=== PATIENT | female | born 1945 | race Asian ===

== ENCOUNTER 2018-01-28 11:41 | Inpatient (IN) | payer MEDICAID, MEDICARE, OTHER ==
[~2018-01-28] VITALS: Ht 154.9 cm; Wt 44.5 kg
[2018-01-28] MEDS ORDERED: SODIUM CHLORIDE 0.9% 1,000 ML IVB ONE (12:23)
[2018-01-28 13:18] LABS: Lactic Acid w/Reflex 2.5 mmol/L (0.4-2.0)
[2018-01-28] MEDS ORDERED: SODIUM CHLORIDE 0.9% 1,000 ML IV ONE ×2 (15:00→15:45)
[2018-01-28 15:06] LABS: Basophils # (auto) 0 uL; Basophils % (auto) 0.2 % (0.0-2.0); Eosinophils # (auto) 0.1 uL; Eosinophils % (auto) 0.5 % (0.0-7.0); Hematocrit 28.4 % (36.0-46.0); Hemoglobin 9.4 g/dL (12.2-16.2); Lymphocytes # (auto) 1.6 uL; Lymphocytes % (auto) 7.6 % (10.0-50.0); Mean Corpuscular Hemoglobin 32.8 pg (28.0-32.0); Mean Corpuscular Volume 99.4 fL (80.0-100.0); Monocytes # (auto) 0.9 uL; Monocytes % (auto) 4.3 % (0.0-12.0); Neutrophils % (auto) 87.4 % (37.0-80.0); Platelet Count (auto) 201 10^3/uL (140-450); Red Blood Cells 2.86 10^6/uL (4.0-5.20); Red Cell Distribution Width 14.7 % (11.8-14.3); White Blood Cell 21.7 10^3/uL (4.4-10.8)
[2018-01-28] MEDS ORDERED: cefTRIAXone 1GM/10ml IVPUSH 10 ML IV ONE (15:15)
[2018-01-28 15:21] LABS: Albumin 2.3 g/dL (3.4-5.0); BUN/Creatinine Ratio 18.2; Bilirubin, Total 0.3 mg/dL (0.2-1.0); Calcium 7.8 mg/dL (8.5-10.1); Magnesium 2.1 mg/dL (1.6-2.6); Potassium 4.1 mmol/L (3.5-5.1); Total Protein 6.4 g/dL (6.4-8.2)
[2018-01-28] MEDS ORDERED: LORazepam 0.5 MG TAB PO PRN (15:45)
[2018-01-28] MEDS ORDERED: PROMETHAZINE HCL 25 MG/ML 1ML IV PRN (15:45)
[2018-01-28] MEDS ORDERED: LACTULOSE 20Gm/30ML SOLN PO PRN (15:45)
[2018-01-28] MEDS ORDERED: NITROGLYCERIN 0.4 MG SL TAB SL PRN (15:45)
[2018-01-28] MEDS ORDERED: ALBUTEROL SULF 2.5 MG/0.5ML(0.5%) NEB SOLN NEB PRN (15:45)
[2018-01-28] MEDS ORDERED: VANCOMYCIN PER PHARMACY 0 MG IV SCH (15:45)
[2018-01-28] MEDS ORDERED: MORPHINE SULFATE 4 MG/ML SYR/VIAL IV PRN ×2 (15:45)
[2018-01-28] MEDS: NOREPINEPHRINE 8 MG/250ML KIT 250 ML IV SCH (15:45)
[2018-01-28] MEDS: SODIUM CHLORIDE 0.9% 1,000 ML IV SCH ×2 (15:45→23:45)
[2018-01-28] MEDS ORDERED: ACETAMINOPHEN 500 MG TAB PO PRN (15:45)
[2018-01-28] MEDS ORDERED: PIPERACILLIN-TAZOB 3.375GM 50 ML IV ONE ×2 (15:45→17:00)
[2018-01-28] MEDS ORDERED: OSELTAMIVIR 30 MG CAP PO ONE (16:30)
[2018-01-28 16:34] LABS: INR 0.99 (0.9-1.15); Partial Thromboplastin Time 25.1 sec (22.64-33.71); Prothrombin Time 10.8 sec (9.37-12.3)
[2018-01-28 17:16] VITALS: BP 92/56
[2018-01-28] MEDS ORDERED: VANCOMYCIN 1GM/250ML 250 ML IV ONE ×2 (18:00→20:15)
[2018-01-28] MEDS: ALBUTEROL SULF 2.5 MG/0.5ML(0.5%) NEB SOLN NEB SCH (19:31)
[2018-01-28] MEDS: IPRATROPIUM BROM 0.5 MG/2.5ML INH SOL NEB SCH (19:31)
[2018-01-28 23:21] VITALS: BP 106/63
[2018-01-29] VITALS (16 sets, daily range): BP systolic 90–147; BP diastolic 52–75
[2018-01-29] MEDS: IPRATROPIUM BROM 0.5 MG/2.5ML INH SOL NEB SCH ×4 (00:17→19:05)
[2018-01-29] MEDS: ALBUTEROL SULF 2.5 MG/0.5ML(0.5%) NEB SOLN NEB SCH ×4 (00:17→19:05)
[2018-01-29 05:50] LABS: Basophils # (auto) 0 uL; Basophils % (auto) 0.3 % (0.0-2.0); Eosinophils # (auto) 0.1 uL; Eosinophils % (auto) 0.8 % (0.0-7.0); Hematocrit 27.9 % (36.0-46.0); Hemoglobin 9.4 g/dL (12.2-16.2); Lymphocytes # (auto) 0.6 uL; Lymphocytes % (auto) 4.8 % (10.0-50.0); Mean Corpuscular Hemoglobin 33.6 pg (28.0-32.0); Mean Corpuscular Hgb Conc. 33.8 g/dL (32.0-36.0); Mean Corpuscular Volume 99.4 fL (80.0-100.0); Monocytes # (auto) 0.5 uL; Neutrophils # (auto) 11.3 uL; Neutrophils % (auto) 90.1 % (37.0-80.0); Platelet Count (auto) 204 10^3/uL (140-450); Red Blood Cells 2.81 10^6/uL (4.0-5.20); Red Cell Distribution Width 14.4 % (11.8-14.3); White Blood Cell 12.5 10^3/uL (4.4-10.8)
[2018-01-29] MEDS: PIPERACILLIN-TAZOB 2.25GM 50 ML IV SCH ×2 (06:26)
[2018-01-29] MEDS: OSELTAMIVIR 30 MG CAP PO SCH ×2 (06:29→18:35)
[2018-01-29 06:46] LABS: Albumin 2.2 g/dL (3.4-5.0); BUN/Creatinine Ratio 21.1; Bilirubin, Total 0.3 mg/dL (0.2-1.0); Calcium 7.8 mg/dL (8.5-10.1); Potassium 3.1 mmol/L (3.5-5.1); Total Protein 6.1 g/dL (6.4-8.2)
[2018-01-29] MEDS: SODIUM CHLORIDE 0.9% 1,000 ML IV SCH ×2 (09:11→11:01)
[2018-01-29] MEDS ORDERED: ENOXAPARIN SOD 30 MG/0.3 ML SYRINGE SC SCH (10:00)
[2018-01-29] MEDS: PANTOPRAZOLE 40 MG TAB PO SCH (10:03)
[2018-01-29] MEDS: AZITHROMYCIN 500MG/ 250ML 250 ML IV SCH (10:03)
[2018-01-29 10:05] LABS: Urine WBC None Seen /hpf (0 - 5)
[2018-01-29] MEDS ORDERED: POTASSIUM CHL 20 Meq TABLET PO ONE (10:30)
[2018-01-29 10:39] LABS: Urine Bacteria NONE SEEN /hpf (None Seen); Urine Blood TRACE /uL (Negative); Urine Specific Gravity 1.019 (1.001-1.035)
[2018-01-29] MEDS ORDERED: IOHEXOL 300 MG/ML 100ML BOTTLE IJ ONE (11:33)
[2018-01-29] MEDS ORDERED: MIDAZOLAM HCL 1MG/1ML-2 ML VIAL ONE (11:50)
[2018-01-29] MEDS ORDERED: fentaNYL CITRATE 100 MCG/2 ML VL ONE (11:50)
[2018-01-29] MEDS: NOREPINEPHRINE 8 MG/250ML KIT 250 ML IV SCH (15:45)
[2018-01-29] MEDS: VANCOMYCIN 1GM/250ML 250 ML IV SCH (21:48)
[2018-01-29] MEDS: TEMAZEPAM 15 MG CAP PO PRN (22:10)
[2018-01-30] VITALS: BP 125/65
[2018-01-30] MEDS: SODIUM CHLORIDE 0.9% 1,000 ML IV SCH ×2 (00:15→14:57)
[2018-01-30] MEDS: IPRATROPIUM BROM 0.5 MG/2.5ML INH SOL NEB SCH ×4 (01:10→19:27)
[2018-01-30] MEDS: ALBUTEROL SULF 2.5 MG/0.5ML(0.5%) NEB SOLN NEB SCH ×4 (01:10→19:27)
[2018-01-30 03:40] VITALS: BP 114/66
[2018-01-30] MEDS: OSELTAMIVIR 30 MG CAP PO SCH ×2 (05:35→17:52)
[2018-01-30 06:20] LABS: Basophils # (auto) 0 uL; Basophils % (auto) 0.2 % (0.0-2.0); Eosinophils # (auto) 0.1 uL; Eosinophils % (auto) 1.5 % (0.0-7.0); Hematocrit 27.1 % (36.0-46.0); Hemoglobin 9.1 g/dL (12.2-16.2); Lymphocytes # (auto) 0.6 uL; Lymphocytes % (auto) 7.2 % (10.0-50.0); Mean Corpuscular Hemoglobin 33.5 pg (28.0-32.0); Mean Corpuscular Hgb Conc. 33.8 g/dL (32.0-36.0); Mean Corpuscular Volume 99.1 fL (80.0-100.0); Monocytes # (auto) 0.5 uL; Monocytes % (auto) 5.1 % (0.0-12.0); Neutrophils # (auto) 7.6 uL; Nucleated Red Blood Cells % 0.1 %; Platelet Count (auto) 186 10^3/uL (140-450); Red Blood Cells 2.73 10^6/uL (4.0-5.20); Red Cell Distribution Width 14.3 % (11.8-14.3); White Blood Cell 8.8 10^3/uL (4.4-10.8)
[2018-01-30 06:38] LABS: BUN/Creatinine Ratio 12.8; Calcium 8.2 mg/dL (8.5-10.1); Potassium 3.6 mmol/L (3.5-5.1)
[2018-01-30 08:00] VITALS: BP 135/86
[2018-01-30] MEDS ORDERED: MEGE40TA15 PO (10:31)
[2018-01-30] MEDS ORDERED: PYRI200T8 PO (10:31)
[2018-01-30] MEDS ORDERED: ISON100T32 PO (10:31)
[2018-01-30] MEDS ORDERED: LUBI8CAP4 PO (10:31)
[2018-01-30] MEDS ORDERED: GUAISYP5 PO (10:31)
[2018-01-30] MEDS ORDERED: LORA-622 PO (10:37)
[2018-01-30] MEDS ORDERED: OMEP20CA74 PO (10:37)
[2018-01-30] MEDS ORDERED: VALS320T15 PO (10:37)
[2018-01-30] MEDS ORDERED: SIMV-8 PO (10:37)
[2018-01-30] MEDS ORDERED: MIRT30TA PO (10:37)
[2018-01-30] MEDS ORDERED: CLOP75TA41 PO (10:37)
[2018-01-30] MEDS ORDERED: TRAZ100T2 PO (10:37)
[2018-01-30] MEDS ORDERED: METH5TAB77 PO (10:37)
[2018-01-30] MEDS ORDERED: ERGO1CAP6 PO (10:37)
[2018-01-30] MEDS: AZITHROMYCIN 500MG/ 250ML 250 ML IV SCH (11:55)
[2018-01-30] MEDS: cefTRIAXone 1GM/10ml IVPUSH 10 ML IV SCH (11:55)
[2018-01-30] MEDS: PANTOPRAZOLE 40 MG TAB PO SCH (11:55)
[2018-01-30 12:00] VITALS: BP 117/69
[2018-01-30] MEDS ORDERED: FLORASTOR (S. BOULARDII) 250 MG CAP PO SCH (13:00)
[2018-01-30] MEDS: FLORASTOR (S. BOULARDII) 250 MG CAP PO SCH (14:57)
[2018-01-30] MEDS: metroNIDAZOLE 500 MG TAB PO SCH ×2 (14:57→21:31)
[2018-01-30 16:00] VITALS: BP 126/53
[2018-01-30 20:00] VITALS: BP 131/65
[2018-01-30] MEDS: VANCOMYCIN 1GM/250ML 250 ML IV SCH (21:31)
[2018-01-30] MEDS ORDERED: guaiFENesin 200 MG/10 ML UD GT PRN (23:15)
[2018-01-31] MEDS: SODIUM CHLORIDE 0.9% 1,000 ML IV SCH (02:30)
[2018-01-31 05:00] VITALS: BP 124/76
[2018-01-31] MEDS: metroNIDAZOLE 500 MG TAB PO SCH ×2 (05:55→14:14)
[2018-01-31] MEDS: ALBUTEROL SULF 2.5 MG/0.5ML(0.5%) NEB SOLN NEB SCH ×4 (06:01→18:33)
[2018-01-31] MEDS: IPRATROPIUM BROM 0.5 MG/2.5ML INH SOL NEB SCH ×4 (06:01→18:33)
[2018-01-31 07:03] LABS: Basophils # (auto) 0 uL; Basophils % (auto) 0.6 % (0.0-2.0); Eosinophils # (auto) 0.2 uL; Eosinophils % (auto) 3.2 % (0.0-7.0); Hematocrit 32.1 % (36.0-46.0); Hemoglobin 10.9 g/dL (12.2-16.2); Lymphocytes # (auto) 0.7 uL; Lymphocytes % (auto) 11.3 % (10.0-50.0); Mean Corpuscular Hemoglobin 33.4 pg (28.0-32.0); Mean Corpuscular Hgb Conc. 33.9 g/dL (32.0-36.0); Mean Corpuscular Volume 98.6 fL (80.0-100.0); Monocytes # (auto) 0.5 uL; Monocytes % (auto) 8.2 % (0.0-12.0); Neutrophils # (auto) 4.7 uL; Neutrophils % (auto) 76.7 % (37.0-80.0); Nucleated Red Blood Cells % 0.1 %; Platelet Count (auto) 209 10^3/uL (140-450); Red Blood Cells 3.26 10^6/uL (4.0-5.20); Red Cell Distribution Width 14.5 % (11.8-14.3); White Blood Cell 6.1 10^3/uL (4.4-10.8)
[2018-01-31 07:19] LABS: BUN/Creatinine Ratio 6.8; Calcium 8.2 mg/dL (8.5-10.1)
[2018-01-31] MEDS: cefTRIAXone 1GM/10ml IVPUSH 10 ML IV SCH (08:41)
[2018-01-31 09:00] VITALS: BP 113/62
[2018-01-31] MEDS: OSELTAMIVIR 30 MG CAP PO SCH ×2 (10:38→18:05)
[2018-01-31] MEDS: FLORASTOR (S. BOULARDII) 250 MG CAP PO SCH (10:38)
[2018-01-31] MEDS: PANTOPRAZOLE 40 MG TAB PO SCH (10:39)
[2018-01-31] MEDS: AZITHROMYCIN 250 MG TAB PO SCH (10:39)
[2018-01-31] MEDS ORDERED: SOD CHL 0.9%/ KCL 20MEQ 1,000 ML IV SCH (12:00)
[2018-01-31] MEDS ORDERED: POTASSIUM CHL 20 Meq TABLET PO ONE (12:00)
[2018-01-31] MEDS ORDERED: BOOST PLUS 8 ounce PO ONE (12:30)
[2018-01-31 13:00] VITALS: BP 118/80
[2018-01-31 16:41] VITALS: BP 128/65
[2018-01-31] MEDS: BOOST PLUS 8 ounce PO SCH (18:05)
[2018-01-31] MEDS: PRO-STAT 64 30ML PO SCH (18:05)
[2018-01-31] MEDS: HYDROcodone-ACET 5/325MG TAB PO PRN (18:54)
[2018-01-31] MEDS ORDERED: LIDOCAINE 1% HCL (LOCAL ANESTH.) INJ 20ML MDV ID ONE (20:00)
[2018-01-31 22:00] VITALS: BP 110/68
[2018-01-31] MEDS: SODIUM CHLOR 0.9% PF (SALINE LOCK) 10ML VIAL IV SCH (22:06)
[2018-01-31] MEDS: TEMAZEPAM 15 MG CAP PO PRN (22:21)
[2018-01-31] MEDS: VANCOMYCIN 1GM/250ML 250 ML IV SCH (22:22)
[2018-02-01] MEDS: IPRATROPIUM BROM 0.5 MG/2.5ML INH SOL NEB SCH ×4 (00:20→18:00)
[2018-02-01] MEDS: ALBUTEROL SULF 2.5 MG/0.5ML(0.5%) NEB SOLN NEB SCH ×4 (00:20→18:00)
[2018-02-01 05:00] VITALS: BP 117/73
[2018-02-01 05:26] LABS: BUN/Creatinine Ratio 8.7; Calcium 8.7 mg/dL (8.5-10.1); Potassium 3.5 mmol/L (3.5-5.1)
[2018-02-01] MEDS: OSELTAMIVIR 30 MG CAP PO SCH ×2 (06:13→18:06)
[2018-02-01] MEDS: PRO-STAT 64 30ML PO SCH ×2 (08:17→18:06)
[2018-02-01] MEDS: BOOST PLUS 8 ounce PO SCH ×2 (08:17→17:06)
[2018-02-01] MEDS: HYDROcodone-ACET 5/325MG TAB PO PRN ×2 (08:18→21:37)
[2018-02-01 08:29] VITALS: BP 102/67
[2018-02-01] MEDS: cefTRIAXone 1GM/10ml IVPUSH 10 ML IV SCH (09:00)
[2018-02-01] MEDS: SODIUM CHLOR 0.9% PF (SALINE LOCK) 10ML VIAL IV SCH ×2 (10:23→21:36)
[2018-02-01] MEDS: PANTOPRAZOLE 40 MG TAB PO SCH (10:23)
[2018-02-01] MEDS: FLORASTOR (S. BOULARDII) 250 MG CAP PO SCH (10:23)
[2018-02-01] MEDS: AZITHROMYCIN 250 MG TAB PO SCH (10:24)
[2018-02-01] MEDS: VANCOMYCIN 750 MG in D5W 5% 250 ML IV SCH ×2 (13:16→21:27)
[2018-02-01 13:34] VITALS: BP 124/68
[2018-02-01 16:21] VITALS: BP 118/61
[2018-02-01] MEDS: TEMAZEPAM 15 MG CAP PO PRN (21:37)
[2018-02-01 22:00] VITALS: BP 145/87
[2018-02-02 05:00] VITALS: BP 123/70
[2018-02-02] MEDS: VANCOMYCIN 750 MG in D5W 5% 250 ML IV SCH (05:13)
[2018-02-02] MEDS: IPRATROPIUM BROM 0.5 MG/2.5ML INH SOL NEB SCH ×4 (05:51→18:42)
[2018-02-02] MEDS: ALBUTEROL SULF 2.5 MG/0.5ML(0.5%) NEB SOLN NEB SCH ×4 (05:51→18:42)
[2018-02-02] MEDS: HYDROcodone-ACET 5/325MG TAB PO PRN ×2 (06:03→18:12)
[2018-02-02] MEDS: OSELTAMIVIR 30 MG CAP PO SCH ×2 (07:00→18:00)
[2018-02-02 09:05] VITALS: BP 96/60
[2018-02-02] MEDS: cefTRIAXone 1GM/10ml IVPUSH 10 ML IV SCH (09:24)
[2018-02-02] MEDS: PANTOPRAZOLE 40 MG TAB PO SCH (09:25)
[2018-02-02] MEDS: FLORASTOR (S. BOULARDII) 250 MG CAP PO SCH (09:25)
[2018-02-02] MEDS: SODIUM CHLOR 0.9% PF (SALINE LOCK) 10ML VIAL IV SCH ×2 (09:25→21:42)
[2018-02-02] MEDS: AZITHROMYCIN 250 MG TAB PO SCH (09:26)
[2018-02-02] MEDS: PRO-STAT 64 30ML PO SCH ×2 (09:34→18:15)
[2018-02-02] MEDS: BOOST PLUS 8 ounce PO SCH ×2 (09:34→18:14)
[2018-02-02] MEDS ORDERED: FLUCONAZOLE 100 MG TAB PO ONE (11:00)
[2018-02-02 11:50] LABS: Basophils # (auto) 0.1 uL; Basophils % (auto) 1.1 % (0.0-2.0); Eosinophils # (auto) 0.4 uL; Eosinophils % (auto) 6.4 % (0.0-7.0); Hematocrit 29.8 % (36.0-46.0); Lymphocytes # (auto) 1.2 uL; Lymphocytes % (auto) 19.8 % (10.0-50.0); Mean Corpuscular Hemoglobin 32.9 pg (28.0-32.0); Mean Corpuscular Hgb Conc. 33.6 g/dL (32.0-36.0); Mean Corpuscular Volume 98.1 fL (80.0-100.0); Monocytes # (auto) 0.6 uL; Monocytes % (auto) 10.2 % (0.0-12.0); Neutrophils # (auto) 3.8 uL; Neutrophils % (auto) 62.5 % (37.0-80.0); Platelet Count (auto) 239 10^3/uL (140-450); Red Blood Cells 3.04 10^6/uL (4.0-5.20); Red Cell Distribution Width 14.4 % (11.8-14.3)
[2018-02-02 12:06] LABS: BUN/Creatinine Ratio 7.1; Calcium 8.8 mg/dL (8.5-10.1); Potassium 3.6 mmol/L (3.5-5.1)
[2018-02-02 13:00] VITALS: BP 128/66
[2018-02-02 17:00] VITALS: BP 134/56
[2018-02-02] MEDS: TEMAZEPAM 15 MG CAP PO PRN (21:42)
[2018-02-02 22:23] VITALS: BP 125/68
[2018-02-03] MEDS: ALBUTEROL SULF 2.5 MG/0.5ML(0.5%) NEB SOLN NEB SCH ×3 (00:39→11:59)
[2018-02-03] MEDS: IPRATROPIUM BROM 0.5 MG/2.5ML INH SOL NEB SCH ×3 (00:39→11:59)
[2018-02-03 04:29] VITALS: BP 115/66
[2018-02-03 05:49] LABS: Basophils # (auto) 0.1 uL; Basophils % (auto) 1.9 % (0.0-2.0); Eosinophils # (auto) 0.4 uL; Eosinophils % (auto) 6.5 % (0.0-7.0); Hematocrit 26.1 % (36.0-46.0); Lymphocytes # (auto) 1.2 uL; Lymphocytes % (auto) 20.2 % (10.0-50.0); Mean Corpuscular Hemoglobin 33.5 pg (28.0-32.0); Mean Corpuscular Hgb Conc. 34.6 g/dL (32.0-36.0); Monocytes # (auto) 0.7 uL; Monocytes % (auto) 11.3 % (0.0-12.0); Neutrophils # (auto) 3.5 uL; Neutrophils % (auto) 60.1 % (37.0-80.0); Platelet Count (auto) 244 10^3/uL (140-450); Red Blood Cells 2.69 10^6/uL (4.0-5.20); Red Cell Distribution Width 14.3 % (11.8-14.3); White Blood Cell 5.9 10^3/uL (4.4-10.8)
[2018-02-03 06:46] LABS: BUN/Creatinine Ratio 11.9; Calcium 8.7 mg/dL (8.5-10.1); Potassium 3.7 mmol/L (3.5-5.1)
[2018-02-03] MEDS: cefTRIAXone 1GM/10ml IVPUSH 10 ML IV SCH (08:53)
[2018-02-03] MEDS: BOOST PLUS 8 ounce PO SCH (08:54)
[2018-02-03] MEDS: PRO-STAT 64 30ML PO SCH (08:54)
[2018-02-03 09:00] VITALS: BP 120/67
[2018-02-03] MEDS ORDERED: FLUCONAZOLE 100 MG TAB PO SCH (10:00)
[2018-02-03] MEDS: FLORASTOR (S. BOULARDII) 250 MG CAP PO SCH (11:02)
[2018-02-03] MEDS: PANTOPRAZOLE 40 MG TAB PO SCH (11:02)
[2018-02-03] MEDS: AZITHROMYCIN 250 MG TAB PO SCH (11:02)
[2018-02-03] MEDS: SODIUM CHLOR 0.9% PF (SALINE LOCK) 10ML VIAL IV SCH (11:04)
== END 2018-02-03 13:15 | disposition home or self-care (01) | DRG 871 ==
LOC: EDBD 11:41 → ER 11:41 → OVERFLOW 11:42 → DOU IN ICU 21:59 → TELE-CENTR 01-30 22:40
PROVIDERS: ADMIT Internal Medicine; ATTEND Internal Medicine
PROC: 0BBC3ZX Excision of Right Upper Lung Lobe, Percutaneous Approach, Diagnostic (ICD-10-PCS; 2018-01-29)
PROC: 02HV33Z Insertion of Infusion Device into Superior Vena Cava, Percutaneous Approach (ICD-10-PCS; principal; 2018-01-31)
DX: A41.9 Sepsis, unspecified organism (principal); G93.41 Metabolic encephalopathy; N17.0 Acute kidney failure with tubular necrosis; R65.21 Severe sepsis with septic shock; J11.08 Influenza due to unidentified influenza virus with specified pneumonia; J18.9 Pneumonia, unspecified organism; E44.0 Moderate protein-calorie malnutrition; D64.9 Anemia, unspecified; K83.8 Other specified diseases of biliary tract; J44.0 Chronic obstructive pulmonary disease with (acute) lower respiratory infection; G47.00 Insomnia, unspecified; E78.5 Hyperlipidemia, unspecified; I10 Essential (primary) hypertension; K21.9 Gastro-esophageal reflux disease without esophagitis; Z86.11 Personal history of tuberculosis; Z87.01 Personal history of pneumonia (recurrent); Z87.891 Personal history of nicotine dependence; Z79.899 Other long term (current) drug therapy
CPT/HCPCS: 10022; 10030; 32405; 36415; 36569; 70450; 71045; 71250; 74177; 77012; 80048; 80053; 80061; 80202; 81001; 82962; 83605; 83735; 84484; 85025; 85610; 85730; 87040; 87070; 87081; 87086; 87205; 87493; 87804; 93005; 94640; 94761; 96361; 96374; 97116; 97530; G9035; J2250; J2543; J7060

== ENCOUNTER 2018-05-06 11:36 | Inpatient (IN) | payer MEDICARE, MEDICAID ==
[~2018-05-06] VITALS: Ht 152.4 cm; Wt 96.1 kg
[~2018-05-06 11:36] MED LIST: CLOP75TA41 PO; ERGO1CAP6 PO; GUAISYP5 PO; ISON100T32 PO; LORA-622 PO; LUBI8CAP4 PO; MEGE40TA15 PO; METH5TAB77 PO; MIRT30TA PO; OMEP20CA74 PO; PYRI200T8 PO; SIMV-8 PO; TRAZ100T2 PO; VALS320T15 PO
[2018-05-06 12:34] LABS: Basophils # (auto) 0.2 uL; Basophils % (auto) 1.2 % (0.0-2.0); Eosinophils # (auto) 0.4 uL; Eosinophils % (auto) 3.6 % (0.0-7.0); Hematocrit 34.3 % (36.0-46.0); Hemoglobin 11.4 g/dL (12.2-16.2); Lymphocytes # (auto) 1.2 uL; Lymphocytes % (auto) 9.4 % (10.0-50.0); Mean Corpuscular Hemoglobin 32.6 pg (28.0-32.0); Mean Corpuscular Hgb Conc. 33.2 g/dL (32.0-36.0); Mean Corpuscular Volume 98.4 fL (80.0-100.0); Monocytes # (auto) 0.7 uL; Monocytes % (auto) 5.2 % (0.0-12.0); Neutrophils # (auto) 10.1 uL; Neutrophils % (auto) 80.6 % (37.0-80.0); Platelet Count (auto) 376 10^3/uL (140-450); Red Blood Cells 3.49 10^6/uL (4.0-5.20); Red Cell Distribution Width 14.6 % (11.8-14.3); White Blood Cell 12.5 10^3/uL (4.4-10.8)
[2018-05-06 12:43] LABS: INR 0.99 (0.9-1.15); Partial Thromboplastin Time 31.7 sec (23.78-33.04); Prothrombin Time 10.6 sec (9.27-12.13)
[2018-05-06 12:54] LABS: Anion Gap 8 (5-15); BUN/Creatinine Ratio 13.5; Blood Urea Nitrogen 10 mg/dL (7-18); Calcium 8.3 mg/dL (8.5-10.1); Carbon Dioxide 22 mmol/L (21-32); Chloride 106 mmol/L (98-107); GFR African American 99 mL/min; GFR Non-African American 82 mL/min; Glucose 130 mg/dL (74-106); Potassium 3.7 mmol/L (3.5-5.1); Sodium 136 mmol/L (136-145)
[2018-05-06 12:59] LABS: Alanine Aminotransferase 16 U/L (13-56); Alkaline Phosphatase 88 U/L (45-117); Aspartate Aminotransferase 17 U/L (15-37); Bilirubin, Total 0.5 mg/dL (0.2-1.0); Total Protein 7.4 g/dL (6.4-8.2)
[2018-05-06] MEDS ORDERED: methylPREDNISolone SOD SUCC 125 MG/2 ML VL IV ONE (14:30)
[2018-05-06] MEDS ORDERED: LEVO5TAB2 PO (14:30)
[2018-05-06] MEDS ORDERED: IPRATROPIUM BROM 0.5 MG/2.5ML INH SOL HHN ONE (14:30)
[2018-05-06] MEDS ORDERED: TIOT1AER IN (14:30)
[2018-05-06] MEDS ORDERED: ALBU0.084 NEB (14:30)
[2018-05-06] MEDS ORDERED: PANC1CAP30 PO (14:30)
[2018-05-06] MEDS ORDERED: cefTRIAXone 1GM/10ml IVPUSH 10 ML IV ONE (14:30)
[2018-05-06] MEDS ORDERED: ALBUTEROL SULF 2.5 MG/0.5ML(0.5%) NEB SOLN HHN ONE (14:30)
[2018-05-06 14:46] LABS: Urine Bacteria NONE SEEN /hpf (None Seen); Urine Blood Negative /uL (Negative); Urine Mucus FEW (None Seen); Urine Specific Gravity 1.031 (1.001-1.035); Urine WBC 5 /hpf (0 - 5)
[2018-05-06] MEDS ORDERED: PROMETHAZINE HCL 25 MG/ML 1ML IV PRN (15:30)
[2018-05-06] MEDS ORDERED: MORPHINE SULF(PF) 0.5MG/ML 10ML VIAL IV PRN (15:30)
[2018-05-06] MEDS ORDERED: MORPHINE SULFATE 8mg/ml INJ SDV IV PRN (15:30)
[2018-05-06] MEDS ORDERED: LACTULOSE 20Gm/30ML SOLN PO PRN (15:30)
[2018-05-06] MEDS ORDERED: LORazepam 0.5 MG TAB PO PRN (15:30)
[2018-05-06] MEDS ORDERED: NITROGLYCERIN 0.4 MG SL TAB SL PRN (15:30)
[2018-05-06] MEDS ORDERED: TEMAZEPAM 15 MG CAP PO PRN (15:30)
[2018-05-06] MEDS ORDERED: ALBUTEROL SULF 2.5 MG/0.5ML(0.5%) NEB SOLN NEB PRN (15:30)
[2018-05-06] MEDS: SODIUM CHLORIDE 0.9% 1,000 ML IV SCH (16:01)
[2018-05-06] MEDS: CLINDAMYCIN 600MG IV 50 ML IV SCH ×2 (16:12→21:56)
[2018-05-06] MEDS: IPRATROPIUM BROM 0.5 MG/2.5ML INH SOL NEB SCH ×2 (16:15→18:21)
[2018-05-06] MEDS: ALBUTEROL SULF 2.5 MG/0.5ML(0.5%) NEB SOLN NEB SCH ×2 (16:15→18:21)
[2018-05-06] MEDS: LEVOFLOXACIN 500MG 100 ML IV SCH (17:03)
[2018-05-06 20:00] VITALS: BP 117/59
[2018-05-06 22:00] VITALS: BP 117/59
[2018-05-06 22:36] VITALS: BP 125/68
[2018-05-06] MEDS ORDERED: PROM1SYP4 PO (23:59)
[2018-05-06] MEDS ORDERED: TRAM50TA2 PO (23:59)
[2018-05-06] MEDS ORDERED: PYRI50TA71 PO (23:59)
[2018-05-06] MEDS ORDERED: OMEP20TA PO (23:59)
[2018-05-06] MEDS ORDERED: DOXY100C2 PO (23:59)
[2018-05-07] MEDS: IPRATROPIUM BROM 0.5 MG/2.5ML INH SOL NEB SCH ×4 (00:30→19:42)
[2018-05-07] MEDS: ALBUTEROL SULF 2.5 MG/0.5ML(0.5%) NEB SOLN NEB SCH ×4 (00:30→19:42)
[2018-05-07 04:14] VITALS: BP 128/67
[2018-05-07] MEDS: SODIUM CHLORIDE 0.9% 1,000 ML IV SCH (06:10)
[2018-05-07] MEDS: CLINDAMYCIN 600MG IV 50 ML IV SCH ×3 (06:11→20:06)
[2018-05-07 06:16] LABS: Basophils # (auto) 0 uL; Basophils % (auto) 0.1 % (0.0-2.0); Eosinophils # (auto) 0 uL; Hematocrit 31.4 % (36.0-46.0); Hemoglobin 10.6 g/dL (12.2-16.2); Lymphocytes # (auto) 0.5 uL; Lymphocytes % (auto) 8.1 % (10.0-50.0); Mean Corpuscular Hemoglobin 32.9 pg (28.0-32.0); Mean Corpuscular Hgb Conc. 33.9 g/dL (32.0-36.0); Monocytes # (auto) 0 uL; Monocytes % (auto) 0.6 % (0.0-12.0); Neutrophils # (auto) 5.7 uL; Neutrophils % (auto) 91.2 % (37.0-80.0); Platelet Count (auto) 354 10^3/uL (140-450); Red Blood Cells 3.24 10^6/uL (4.0-5.20); Red Cell Distribution Width 14.5 % (11.8-14.3); White Blood Cell 6.2 10^3/uL (4.4-10.8)
[2018-05-07 06:40] LABS: Albumin 2.9 g/dL (3.4-5.0); BUN/Creatinine Ratio 18.9; Bilirubin, Total 0.2 mg/dL (0.2-1.0); Calcium 8.8 mg/dL (8.5-10.1); Potassium 3.8 mmol/L (3.5-5.1); Total Protein 7.4 g/dL (6.4-8.2)
[2018-05-07 09:00] VITALS: BP 117/62
[2018-05-07] MEDS ORDERED: ENOXAPARIN SOD 30 MG/0.3 ML SYRINGE SC SCH (10:00)
[2018-05-07] MEDS: LEVOFLOXACIN 500MG 100 ML IV SCH (10:48)
[2018-05-07] MEDS ORDERED: methylPREDNISolone SOD SUCC 40 MG/ML VL IV ONE (11:15)
[2018-05-07] MEDS ORDERED: METHIMAZOLE 5 MG TAB PO ONE (11:15)
[2018-05-07 13:00] VITALS: BP 121/68
[2018-05-07 16:32] VITALS: BP 112/79
[2018-05-07] MEDS: ACETAMINOPHEN 500 MG TAB PO PRN (20:06)
[2018-05-07 21:55] VITALS: BP 123/66
[2018-05-08] MEDS: ALBUTEROL SULF 2.5 MG/0.5ML(0.5%) NEB SOLN NEB SCH ×4 (02:24→18:08)
[2018-05-08] MEDS: IPRATROPIUM BROM 0.5 MG/2.5ML INH SOL NEB SCH ×4 (02:24→18:08)
[2018-05-08 05:00] VITALS: BP 139/83
[2018-05-08] MEDS: CLINDAMYCIN 600MG IV 50 ML IV SCH (05:01)
[2018-05-08 06:20] LABS: BUN/Creatinine Ratio 27.5; Calcium 9.3 mg/dL (8.5-10.1); Potassium 3.9 mmol/L (3.5-5.1)
[2018-05-08 08:00] VITALS: BP 143/75
[2018-05-08 09:12] VITALS: BP 143/75
[2018-05-08] MEDS: METHIMAZOLE 5 MG TAB PO SCH (09:50)
[2018-05-08] MEDS: LEVOFLOXACIN 500MG 100 ML IV SCH (09:50)
[2018-05-08] MEDS ORDERED: methylPREDNISolone SOD SUCC 40 MG/ML VL IV SCH (10:00)
[2018-05-08] MEDS ORDERED: ENOXAPARIN SOD 30 MG/0.3 ML SYRINGE SC SCH (10:00)
[2018-05-08] MEDS ORDERED: FLUCONAZOLE 200MG/100ML 100 ML IV ONE (11:15)
[2018-05-08] MEDS ORDERED: MORPHINE SULF INJ 2 MG/ML SYRINGE 1ML IV PRN (11:30)
[2018-05-08] MEDS: PIPERACILLIN-TAZOB 3.375GM 100 ML IV SCH ×3 (12:22→23:56)
[2018-05-08 13:06] VITALS: BP 137/74
[2018-05-08] MEDS: ACETAMINOPHEN 500 MG TAB PO PRN (17:01)
[2018-05-08] MEDS ORDERED: FLUCONAZOLE 100 MG TAB PO ONE (17:15)
[2018-05-08 17:26] VITALS: BP 137/53
[2018-05-08 21:40] VITALS: BP 132/66
[2018-05-08] MEDS: methylPREDNISolone SOD SUCC 40 MG/ML VL IV SCH (21:54)
[2018-05-09 05:06] VITALS: BP 151/81
[2018-05-09] MEDS: PIPERACILLIN-TAZOB 3.375GM 100 ML IV SCH (05:22)
[2018-05-09] MEDS: IPRATROPIUM BROM 0.5 MG/2.5ML INH SOL NEB SCH ×4 (05:44→12:19)
[2018-05-09] MEDS: ALBUTEROL SULF 2.5 MG/0.5ML(0.5%) NEB SOLN NEB SCH ×4 (05:44→12:19)
[2018-05-09 09:30] VITALS: BP 123/71
[2018-05-09] MEDS ORDERED: FLUCONAZOLE 100 MG TAB PO SCH (10:00)
[2018-05-09] MEDS ORDERED: FLUCONAZOLE 200MG/100ML 100 ML IV SCH (10:00)
[2018-05-09] MEDS: methylPREDNISolone SOD SUCC 40 MG/ML VL IV SCH (10:08)
[2018-05-09] MEDS: METHIMAZOLE 5 MG TAB PO SCH (10:09)
[2018-05-09 11:42] VITALS: BP 123/71
== END 2018-05-09 12:15 | disposition home or self-care (01) | DRG 137 ==
LOC: ER 11:37 → TELE 11:38 → TELE-EAST 20:34 → EAST 05-07 22:49
PROVIDERS: ADMIT Internal Medicine; ATTEND Internal Medicine
DX: J15.1 Pneumonia due to Pseudomonas (principal); E44.0 Moderate protein-calorie malnutrition; I48.0 Paroxysmal atrial fibrillation; Z68.41 Body mass index [BMI] 40.0-44.9, adult; J44.0 Chronic obstructive pulmonary disease with (acute) lower respiratory infection; I10 Essential (primary) hypertension; E05.90 Thyrotoxicosis, unspecified without thyrotoxic crisis or storm; J44.1 Chronic obstructive pulmonary disease with (acute) exacerbation; D50.8 Other iron deficiency anemias; D50.9 Iron deficiency anemia, unspecified; E78.5 Hyperlipidemia, unspecified; K21.9 Gastro-esophageal reflux disease without esophagitis; Z82.49 Family history of ischemic heart disease and other diseases of the circulatory system; Z86.11 Personal history of tuberculosis; Z87.891 Personal history of nicotine dependence; K59.00 Constipation, unspecified
CPT/HCPCS: 36415; 71046; 80048; 80053; 81001; 83605; 83735; 84484; 85025; 85610; 85730; 87040; 87070; 87077; 87186; 87205; 93005; 94640; 94761; 96361; 96374; 96375; J1956; J2543; J3490

== ENCOUNTER 2018-11-02 09:30 | Emergency (ER) | payer MEDICARE, OTHER ==
[~2018-11-02] VITALS: Ht 152.4 cm; Wt 42.6 kg
[~2018-11-02 09:30] MED LIST changes: +ALBU0.084 NEB; -ERGO1CAP6 PO; +FLUT1AER3 IN; -GUAISYP5 PO; -ISON100T32 PO; +LEVO5TAB2 PO; -LORA-622 PO; +METH5T PO; -METH5TAB77 PO; -MIRT30TA PO; -OMEP20CA74 PO; +OMEP20TA PO; +PANC1CAP30 PO; +PROM1SYP4 PO; -PYRI200T8 PO; +PYRI50TA71 PO; +TIOT1AER IN; +TRAM50TA2 PO; -VALS320T15 PO; +ZOLP10TA PO
[2018-11-02 10:07] LABS: Basophils # (auto) 0.1 uL; Eosinophils # (auto) 0.2 uL; Hemoglobin 12.4 g/dL (12.2-16.2); Monocytes # (auto) 0.5 uL
[2018-11-02 10:10] LABS: Basophils % (auto) 1.3 % (0.0-2.0); Eosinophils % (auto) 2.2 % (0.0-7.0); Hematocrit 37.4 % (36.0-46.0); Lymphocytes # (auto) 1.3 uL; Lymphocytes % (auto) 14.6 % (10.0-50.0); Mean Corpuscular Hemoglobin 33.4 pg (28.0-32.0); Mean Corpuscular Hgb Conc. 33.3 g/dL (32.0-36.0); Mean Corpuscular Volume 100.4 fL (80.0-100.0); Monocytes % (auto) 6.1 % (0.0-12.0); Neutrophils # (auto) 6.7 uL; Neutrophils % (auto) 75.8 % (37.0-80.0); Platelet Count (auto) 376 10^3/uL (140-450); Red Blood Cells 3.73 10^6/uL (4.0-5.20); Red Cell Distribution Width 13.9 % (11.8-14.3); White Blood Cell 8.9 10^3/uL (4.4-10.8)
[2018-11-02 10:28] LABS: Albumin 3.5 g/dL (3.4-5.0); Anion Gap 11 (5-15); Blood Urea Nitrogen 10 mg/dL (7-18); Calcium 9.1 mg/dL (8.5-10.1); Carbon Dioxide 22 mmol/L (21-32); Chloride 100 mmol/L (98-107); Glucose 119 mg/dL (74-106); Potassium 3.8 mmol/L (3.5-5.1); Sodium 133 mmol/L (136-145)
[2018-11-02 10:30] LABS: Alanine Aminotransferase 62 U/L (13-56); Aspartate Aminotransferase 168 U/L (15-37); BUN/Creatinine Ratio 9.8; GFR African American 68 mL/min; GFR Non-African American 56 mL/min
[2018-11-02 10:40] LABS: Alkaline Phosphatase 136 U/L (45-117); Bilirubin, Total 0.5 mg/dL (0.2-1.0); Total Protein 8.6 g/dL (6.4-8.2)
[2018-11-02] MEDS ORDERED: SODIUM CHLORIDE 0.9% 1,000 ML IV ONE (11:05)
[2018-11-02] MEDS ORDERED: LORazepam 2MG/ML-1ML VIAL IV ONE (11:15)
[2018-11-02 11:34] VITALS: BP 108/66
[2018-11-02 13:53] LABS: Urine Bacteria FEW /hpf (None Seen); Urine Blood Negative /uL (Negative); Urine Specific Gravity 1.008 (1.001-1.035); Urine WBC <1 /hpf (0 - 5)
[2018-11-04] MEDS ORDERED: VORI200T8 PO (17:10)
== END 2018-11-02 13:38 | disposition home or self-care (01) ==
LOC: ER 09:30
DX: K75.9 Inflammatory liver disease, unspecified (principal); A18 Tuberculosis of other organs; I48.91 Unspecified atrial fibrillation; J44.9 Chronic obstructive pulmonary disease, unspecified; E78.5 Hyperlipidemia, unspecified; I10 Essential (primary) hypertension; Z79.899 Other long term (current) drug therapy
CPT/HCPCS: 36415; 70450; 71046; 80053; 81001; 82962; 84484; 85025; 93005

== ENCOUNTER 2019-03-29 02:58 | Inpatient (IN) | payer MEDICAID, MEDICARE, OTHER ==
[~2019-03-29] VITALS: Ht 154.9 cm; Wt 42.2 kg
[~2019-03-29 02:58] MED LIST changes: +ATOR20TA50 PO; -CLOP75TA41 PO; -SIMV-8 PO; +VORI200T8 PO
[2019-03-29] MEDS ORDERED: methylPREDNISolone SOD SUCC 125 MG/2 ML VL IV ONE (03:00)
[2019-03-29 03:33] LABS: Basophils # (auto) 0 uL; Basophils % (auto) 0.3 % (0.0-2.0); Eosinophils # (auto) 0 uL; Eosinophils % (auto) 0.3 % (0.0-7.0); Hematocrit 31.7 % (36.0-46.0); Hemoglobin 10.7 g/dL (12.2-16.2); Lymphocytes # (auto) 1.4 uL; Mean Corpuscular Hemoglobin 32.1 pg (28.0-32.0); Mean Corpuscular Hgb Conc. 33.7 g/dL (32.0-36.0); Mean Corpuscular Volume 95.3 fL (80.0-100.0); Monocytes # (auto) 0.6 uL; Monocytes % (auto) 4.9 % (0.0-12.0); Neutrophils # (auto) 9.9 uL; Neutrophils % (auto) 82.5 % (37.0-80.0); Platelet Count (auto) 173 10^3/uL (140-450); Red Blood Cells 3.33 10^6/uL (4.0-5.20); Red Cell Distribution Width 14.8 % (11.8-14.3)
[2019-03-29 03:52] LABS: Alanine Aminotransferase 32 U/L (13-56); Albumin 3.5 g/dL (3.4-5.0); Anion Gap 12 (5-15); BUN/Creatinine Ratio 15.8; Blood Urea Nitrogen 29 mg/dL (7-18); Calcium 8.7 mg/dL (8.5-10.1); Carbon Dioxide 21 mmol/L (21-32); Chloride 99 mmol/L (98-107); GFR African American 35 mL/min; GFR Non-African American 29 mL/min; Glucose 147 mg/dL (74-106); Sodium 132 mmol/L (136-145)
[2019-03-29 03:56] LABS: Alkaline Phosphatase 150 U/L (45-117); Aspartate Aminotransferase 37 U/L (15-37); Bilirubin, Total 0.3 mg/dL (0.2-1.0); Total Protein 7.8 g/dL (6.4-8.2)
[2019-03-29] MEDS ORDERED: NITROGLYCERIN 0.4 MG SL TAB SL PRN (10:00)
[2019-03-29] MEDS ORDERED: ACETAMINOPHEN 500 MG TAB PO PRN (10:00)
[2019-03-29] MEDS ORDERED: ONDANSETRON HCL 4 MG/2 ML VIAL IV PRN (10:00)
[2019-03-29] MEDS ORDERED: MORPHINE SULF INJ 2 MG/ML SYRINGE 1ML IV PRN ×2 (10:00)
[2019-03-29] MEDS: IPRATROPIUM BROM 0.5 MG/2.5ML INH SOL NEB SCH ×4 (10:26→23:21)
[2019-03-29] MEDS: ALBUTEROL SULF 2.5 MG/0.5ML(0.5%) NEB SOLN NEB SCH ×4 (10:26→23:21)
[2019-03-29] MEDS: PANTOPRAZOLE 40 MG TAB PO SCH (10:30)
[2019-03-29] MEDS: DOXYCYCLINE 100MG/250ML 250 ML IV SCH ×2 (10:30→22:43)
[2019-03-29] MEDS: SODIUM CHLORIDE 0.9% 1,000 ML IV SCH ×2 (10:30→20:15)
[2019-03-29] MEDS: PIPERACILLIN-TAZOB 2.25GM 50 ML IV SCH ×2 (14:34→18:09)
[2019-03-29 14:49] VITALS: BP 101/77
--- NOTE | 2019-03-29 20:05 | NUR ---
Telemetry admit from ER TONIASbSTEVE admitted to Telemetry unit after SBAR received. Patient oriented to Matty nunez RN, unit, room, bed, and unit policies regarding patient care and visiting hours. Patient now on continuous telemetry monitoring, tele box # 29 and telemetry reading on arrival to unit is SYNUS TACHY. Patient placed on bedside oxygen, weighed by bedscale and encouraged to call if they need something. All questions and concerns addressed, patient verbalized understanding.
[2019-03-29 22:23] VITALS: BP 115/68
[2019-03-30 05:00] VITALS: BP 123/67
[2019-03-30] MEDS: PIPERACILLIN-TAZOB 2.25GM 50 ML IV SCH ×5 (06:00→23:49)
[2019-03-30 07:23] LABS: Basophils # (auto) 0 uL; Basophils % (auto) 0.1 % (0.0-2.0); Eosinophils # (auto) 0 uL; Hematocrit 29.1 % (36.0-46.0); Lymphocytes # (auto) 0.8 uL; Lymphocytes % (auto) 10.1 % (10.0-50.0); Mean Corpuscular Hemoglobin 32.9 pg (28.0-32.0); Mean Corpuscular Hgb Conc. 34.2 g/dL (32.0-36.0); Monocytes # (auto) 0.5 uL; Neutrophils # (auto) 6.5 uL; Neutrophils % (auto) 83.8 % (37.0-80.0); Platelet Count (auto) 170 10^3/uL (140-450); Red Blood Cells 3.03 10^6/uL (4.0-5.20); Red Cell Distribution Width 14.8 % (11.8-14.3); White Blood Cell 7.8 10^3/uL (4.4-10.8)
[2019-03-30] MEDS: ALBUTEROL SULF 2.5 MG/0.5ML(0.5%) NEB SOLN NEB SCH ×5 (07:40→22:33)
[2019-03-30] MEDS: IPRATROPIUM BROM 0.5 MG/2.5ML INH SOL NEB SCH ×5 (07:40→22:33)
[2019-03-30 07:42] LABS: Albumin 3.3 g/dL (3.4-5.0); Potassium 4.2 mmol/L (3.5-5.1)
[2019-03-30 07:49] LABS: BUN/Creatinine Ratio 30.8; Bilirubin, Total 0.3 mg/dL (0.2-1.0); Calcium 8.8 mg/dL (8.5-10.1); Total Protein 7.1 g/dL (6.4-8.2)
[2019-03-30] MEDS: SODIUM CHLORIDE 0.9% 1,000 ML IV SCH ×2 (08:00→11:15)
[2019-03-30 08:49] VITALS: BP 85/55
[2019-03-30] MEDS: PANTOPRAZOLE 40 MG TAB PO SCH (08:54)
[2019-03-30] MEDS: DOXYCYCLINE 100MG/250ML 250 ML IV SCH (08:55)
[2019-03-30] MEDS: HYDROcodone-ACET 5/325MG TAB PO PRN ×2 (10:14→20:50)
[2019-03-30] MEDS ORDERED: ZOLPIDEM TARTRATE 5 MG TAB PO PRN (11:15)
[2019-03-30] MEDS: PANCREATIC ENZYMES 4200 UNIT CAP PO SCH ×2 (12:00→18:19)
[2019-03-30 12:58] VITALS: BP 97/56
--- NOTE | 2019-03-30 13:43 | NUR ---
PT REFUSING MEDS, FOOD, AND BLOOD DRAWS. UNABLE TO DRAW BLOOD FROM MIDLINE. TURNED Q 2 HOUR. WOUND CARE DONE PER WOUND RN TODAY. CONTINUING TO MONITOR CLOSELY.
--- NOTE | 2019-03-30 14:55 | NUR ---
MED RECON MD ROSSANA AWARE. PER , FACILITY DOES NOT CARRY VORICONAZOLE. MESSAGE LEFT FOR PT SON BETHANIE AT [phone] TO CALL FACILITY AND BRING HOME MEDICATION IN.
[2019-03-30 16:31] VITALS: BP 97/61
[2019-03-30 16:39] LABS: Urine Bacteria NONE SEEN /hpf (None Seen); Urine Blood Negative /uL (Negative); Urine Specific Gravity 1.008 (1.001-1.035); Urine WBC 1 /hpf (0 - 5)
--- NOTE | 2019-03-30 20:00 | NUR ---
Opening Shift Note Assumed care of patient, awake and alert. No S/S of distress/SOB or pain. Instructed on POC and to call for assist PRN, will continue to monitor for changes Q1hr and PRN.
--- NOTE | 2019-03-30 20:00 | NUR ---
Noted that the patient has right upper midline i.v.line, patient said she has that before coming ho this hospital and said its 22 days already.
[2019-03-30 22:00] VITALS: BP 97/52
--- NOTE | 2019-03-30 22:43 | NUR ---
Paged hospitalist for cough medicine, with order of guaifenesin 10cc every 6 hour as needed.
[2019-03-30] MEDS: guaiFENesin 200 MG/10 ML UD PO PRN (23:15)
[2019-03-31] MEDS: SODIUM CHLORIDE 0.9% 1,000 ML IV SCH (00:30)
[2019-03-31 05:00] VITALS: BP 113/71
[2019-03-31] MEDS: PIPERACILLIN-TAZOB 2.25GM 50 ML IV SCH ×3 (05:39→16:57)
[2019-03-31] MEDS: ALBUTEROL SULF 2.5 MG/0.5ML(0.5%) NEB SOLN NEB SCH ×5 (06:51→22:44)
[2019-03-31] MEDS: IPRATROPIUM BROM 0.5 MG/2.5ML INH SOL NEB SCH ×5 (06:51→22:45)
--- NOTE | 2019-03-31 07:16 | NUR ---
Report given to Mishel Aguiar to assume care, patient is resting no discomfort.
[2019-03-31 07:31] LABS: Basophils # (auto) 0 uL; Eosinophils # (auto) 0 uL; Eosinophils % (auto) 0.6 % (0.0-7.0); Hematocrit 30.9 % (36.0-46.0); Hemoglobin 10.4 g/dL (12.2-16.2); Lymphocytes # (auto) 1.4 uL; Lymphocytes % (auto) 28.7 % (10.0-50.0); Mean Corpuscular Hemoglobin 32.2 pg (28.0-32.0); Mean Corpuscular Hgb Conc. 33.5 g/dL (32.0-36.0); Mean Corpuscular Volume 96.2 fL (80.0-100.0); Monocytes # (auto) 0.7 uL; Monocytes % (auto) 13.9 % (0.0-12.0); Neutrophils # (auto) 2.7 uL; Neutrophils % (auto) 55.8 % (37.0-80.0); Platelet Count (auto) 186 10^3/uL (140-450); Red Blood Cells 3.21 10^6/uL (4.0-5.20); Red Cell Distribution Width 14.9 % (11.8-14.3); White Blood Cell 4.9 10^3/uL (4.4-10.8)
[2019-03-31 07:43] LABS: INR 0.94 (0.9-1.15); Partial Thromboplastin Time 32.2 sec (23.78-33.04); Prothrombin Time 10.1 sec (9.27-12.13)
[2019-03-31 07:51] LABS: Potassium 3.6 mmol/L (3.5-5.1)
[2019-03-31 07:55] LABS: Calcium 8.5 mg/dL (8.5-10.1)
[2019-03-31] MEDS: PANCREATIC ENZYMES 4200 UNIT CAP PO SCH ×3 (08:12→16:54)
[2019-03-31 08:58] VITALS: BP 112/71
[2019-03-31] MEDS: METHIMAZOLE 5 MG TAB PO SCH (09:09)
[2019-03-31] MEDS: PANTOPRAZOLE 40 MG TAB PO SCH (09:09)
[2019-03-31] MEDS: ASPirin 81 mg TAB PO SCH (09:09)
[2019-03-31] MEDS: guaiFENesin 200 MG/10 ML UD PO PRN ×3 (09:33→21:37)
[2019-03-31] MEDS ORDERED: BUDESONIDE (INHALATION) 0.5 MG/2 ML NEB NEB ONE (10:15)
[2019-03-31] MEDS ORDERED: methylPREDNISolone SOD SUCC 40 MG/ML VL IV ONE ×2 (10:15→23:00)
--- NOTE | 2019-03-31 12:44 | NUR ---
THIS AM APPROX. 0930, NOTED PT TO BE VERY SOB AFTER WALKING TO AND FROM BATHROOM. 02 ON AT 2 L INCREASED TO 3 L VIA N/C. SATS 100% PULSE 105-106. DR. CEE AT BEDSIDE, AWARE. NEW ORDERS NOTED AND RECEIVED. ESAU KOVACS WAS NOTIFIED VIA TELEPHONE TO BRING IN PT HOME MED VORICONAZOLE. AT THIS TIME ESAU KOVACS IN FACILITY, BROUGHT IN ALL HOME MEDS, BUT DID NOT BRING VORICONAZOLE. PER BETHANIE, [facility] DOES NOT HAVE MEDICATION AND PT [facility] IN [place] IS OUT OF STOCK UNTIL TOMORROW 04/01/19.
--- NOTE | 2019-03-31 12:55 | NUR ---
Nutrition Assessment Notes Please see attached link for complete assessment Est. Needs based on IBW (47 kg): [id number] kcal (25-30 kcal/kgIBW), 47-56 gms pro (1.0-1.2 gms/kgIBW). Will continue to monitor pertinent labs and reassess nutrient need prn Addendum: 03/31/19 at [address] Amended: Links added.
[2019-03-31 13:03] VITALS: BP 115/64
--- NOTE | 2019-03-31 15:02 | NUR ---
DR CEE NOTIFIED THAT PT HOME MED IS STILL UNAVAILABLE AND PT SON BETHANIE WILL BRING MED IN TOMORROW.
--- NOTE | 2019-03-31 15:30 | NUR ---
PT DECLINED P.T. TODAY.
[2019-03-31 16:37] VITALS: BP 125/67
[2019-03-31] MEDS: HYDROcodone-ACET 5/325MG TAB PO PRN (16:54)
[2019-03-31] MEDS: Ensure Enlive Strawberry 8oz Bottle PO SCH (18:00)
[2019-03-31] MEDS: BUDESONIDE (INHALATION) 0.5 MG/2 ML NEB NEB SCH (18:17)
[2019-03-31] MEDS ORDERED: methylPREDNISolone SOD SUCC 40 MG/ML VL IV SCH (22:00)
[2019-03-31 22:26] VITALS: BP 112/71
--- NOTE | 2019-03-31 22:58 | NUR ---
SPOKE WITH ELMA/BRAILLE AND TALKING BOOKS CLERK HOSPITALIST, MADE AWARE OF PATIENT'S CONDITION, WHEEZING ON BOTH LUNGS. NEW ORDERS MADE. CONTINUE PATIENT CARE.
[2019-03-31] MEDS ORDERED: ALBUTEROL SULF 2.5 MG/0.5ML(0.5%) NEB SOLN NEB PRN (23:00)
[2019-04-01] MEDS: PIPERACILLIN-TAZOB 2.25GM 50 ML IV SCH ×4 (00:09→20:10)
[2019-04-01] MEDS: guaiFENesin 200 MG/10 ML UD PO PRN ×3 (04:40→21:11)
[2019-04-01] MEDS: HYDROcodone-ACET 5/325MG TAB PO PRN ×3 (04:41→21:12)
--- NOTE | 2019-04-01 04:41 | NUR ---
PATIENT COMPLAINT OF CHEST WALL PAIN AND HEADACHE BUT VERBALIZED FEELING MUCH BETTER AND BEING ABLE TO GET SOME REST LAST NIGHT. MEDICATED WITH NORCO FOR PAIN AND ROBITUSSIN FOR COUGH PER MD ORDER, TOLERATED WELL. CONTINUE PATIENT CARE;
[2019-04-01 04:57] VITALS: BP 148/83
[2019-04-01] MEDS: IPRATROPIUM BROM 0.5 MG/2.5ML INH SOL NEB SCH ×4 (06:20→22:07)
[2019-04-01] MEDS: ALBUTEROL SULF 2.5 MG/0.5ML(0.5%) NEB SOLN NEB SCH ×4 (06:20→22:07)
[2019-04-01] MEDS: BUDESONIDE (INHALATION) 0.5 MG/2 ML NEB NEB SCH ×2 (06:21→17:31)
[2019-04-01] MEDS: Ensure Enlive Strawberry 8oz Bottle PO SCH ×2 (08:00→17:58)
--- NOTE | 2019-04-01 08:00 | NUR ---
Opening Shift Note Assumed care of patient, awake, alert and oriented X4. No S/S of distress/SOB or pain. Patient does get short of breath with talking and minimal activity. O2 @ 2 LPM via nasal cannula with Sats @ 98%. Tele# 26, sinus tachycardia at 105 bpm. Instructed on POC and to call for assist PRN, verbalized understanding. Bed locked, in lowest position, call light within reach, will continue to monitor for changes Q1hr and PRN.
[2019-04-01] MEDS: PANCREATIC ENZYMES 4200 UNIT CAP PO SCH ×3 (08:53→17:58)
[2019-04-01 09:00] VITALS: BP 113/76
[2019-04-01] MEDS ORDERED: methylPREDNISolone SOD SUCC 40 MG/ML VL IV SCH (10:00)
[2019-04-01] MEDS: METHIMAZOLE 5 MG TAB PO SCH (10:13)
[2019-04-01] MEDS: ASPirin 81 mg TAB PO SCH (10:14)
[2019-04-01] MEDS: PANTOPRAZOLE 40 MG TAB PO SCH (10:14)
[2019-04-01] MEDS ORDERED: MORPHINE SULF INJ 2 MG/ML SYRINGE 1ML IV PRN ×2 (11:00→11:30)
--- NOTE | 2019-04-01 11:00 | NUR ---
ROUNDS Dr Dao at bedside for rounds, new orders received and followed through. Patient updated on plan of care, verbalized understanding.
[2019-04-01 13:00] VITALS: BP 114/74
[2019-04-01] MEDS ORDERED: VORICONAZOLE IV SCH (14:00)
[2019-04-01] MEDS ORDERED: D5W 5% IV SCH (14:00)
[2019-04-01] MEDS: VORICONAZOLE IV SCH (15:54)
[2019-04-01] MEDS: D5W 5% IV SCH (15:54)
[2019-04-01 17:00] VITALS: BP_SYST 118; BP_SYST 124; BP_DIAS 70
[2019-04-01 18:37] VITALS: BP 118/70
--- NOTE | 2019-04-01 19:02 | NUR ---
TELE Tele box switched to # 27, sinus tachycardia @ 107 bpm.
--- NOTE | 2019-04-01 19:11 | NUR ---
CARE ENDORSED TO MARLENA VOGT.
[2019-04-01] MEDS: methylPREDNISolone SOD SUCC 40 MG/ML VL IV SCH (21:11)
[2019-04-01 22:00] VITALS: BP 127/72
[2019-04-02] MEDS: PIPERACILLIN-TAZOB 2.25GM 50 ML IV SCH ×4 (00:09→17:36)
[2019-04-02] MEDS: D5W 5% IV SCH (01:44)
[2019-04-02] MEDS: VORICONAZOLE IV SCH (01:44)
[2019-04-02] MEDS: HYDROcodone-ACET 5/325MG TAB PO PRN ×3 (03:27→19:55)
[2019-04-02] MEDS: guaiFENesin 200 MG/10 ML UD PO PRN ×3 (03:28→19:54)
[2019-04-02 05:00] VITALS: BP 114/66
--- NOTE | 2019-04-02 05:27 | NUR ---
PICC LINE DRESSING CHANGED USING STERILE TECHNIQUE. PATIENT TOLERATED WELL. CONTINUE PATIENT CARE.
[2019-04-02] MEDS: IPRATROPIUM BROM 0.5 MG/2.5ML INH SOL NEB SCH ×5 (07:13→23:08)
[2019-04-02] MEDS: ALBUTEROL SULF 2.5 MG/0.5ML(0.5%) NEB SOLN NEB SCH ×5 (07:13→23:08)
--- NOTE | 2019-04-02 07:55 | NUR ---
Patient sitting in bed, awake, oriented x4, on O2 at 2 LPM via long tubing nasal cannula.
[2019-04-02 08:00] VITALS: BP 136/80
[2019-04-02 09:00] VITALS: BP 136/80
[2019-04-02] MEDS: METHIMAZOLE 5 MG TAB PO SCH (09:00)
[2019-04-02] MEDS: PANTOPRAZOLE 40 MG TAB PO SCH (09:00)
[2019-04-02] MEDS: ASPirin 81 mg TAB PO SCH (09:00)
[2019-04-02] MEDS: methylPREDNISolone SOD SUCC 40 MG/ML VL IV SCH (09:01)
[2019-04-02] MEDS: PANCREATIC ENZYMES 4200 UNIT CAP PO SCH ×3 (09:01→17:36)
[2019-04-02] MEDS: Ensure Enlive Strawberry 8oz Bottle PO SCH ×2 (09:09→17:36)
--- NOTE | 2019-04-02 10:30 | NUR ---
Dr. Dao at bedside. ordered to follow up with the son for patient own medications from home.
[2019-04-02] MEDS: BUDESONIDE (INHALATION) 0.5 MG/2 ML NEB NEB SCH ×2 (10:42→23:08)
[2019-04-02] MEDS ORDERED: VORICONAZOLE 50 MG TAB PO SCH (11:00)
--- NOTE | 2019-04-02 11:00 | NUR ---
Dr. Dao made aware patient wants to take her Megestrol from home daily. ordered Megestrol PO daily.
[2019-04-02] MEDS: MEGESTROL ACETATE 20 MG TAB PO SCH (11:33)
[2019-04-02 13:00] VITALS: BP 117/69
[2019-04-02] MEDS ORDERED: VORICONAZOLE IV SCH (14:00)
[2019-04-02] MEDS ORDERED: D5W 5% IV SCH (14:00)
[2019-04-02 17:50] VITALS: BP 136/71
--- NOTE | 2019-04-02 19:30 | NUR ---
Opening Shift Note Assumed care of patient, awake and alert. No S/S of distress/SOB or pain. Instructed on POC and to call for assist PRN. Bed in lowest locked position, call light within reach, side rails up x2. Will continue to monitor for changes Q1hr and PRN.
[2019-04-02] MEDS: VORICONAZOLE 200 MG PO SCH (21:40)
[2019-04-02 22:00] VITALS: BP 126/72
[2019-04-03] MEDS: PIPERACILLIN-TAZOB 2.25GM 50 ML IV SCH ×4 (00:06→22:08)
[2019-04-03] MEDS: HYDROcodone-ACET 5/325MG TAB PO PRN ×2 (02:17→20:36)
[2019-04-03] MEDS: guaiFENesin 200 MG/10 ML UD PO PRN ×2 (02:17→20:35)
[2019-04-03 05:00] VITALS: BP 125/75
[2019-04-03 06:05] LABS: Basophils # (auto) 0 uL; Basophils % (auto) 0.1 % (0.0-2.0); Eosinophils # (auto) 0 uL; Hematocrit 29.8 % (36.0-46.0); Hemoglobin 10.3 g/dL (12.2-16.2); Lymphocytes # (auto) 0.6 uL; Lymphocytes % (auto) 12.7 % (10.0-50.0); Mean Corpuscular Hemoglobin 32.7 pg (28.0-32.0); Mean Corpuscular Hgb Conc. 34.5 g/dL (32.0-36.0); Mean Corpuscular Volume 94.7 fL (80.0-100.0); Monocytes # (auto) 0.2 uL; Monocytes % (auto) 4.9 % (0.0-12.0); Neutrophils # (auto) 3.9 uL; Neutrophils % (auto) 82.3 % (37.0-80.0); Platelet Count (auto) 207 10^3/uL (140-450); Red Blood Cells 3.14 10^6/uL (4.0-5.20); Red Cell Distribution Width 14.5 % (11.8-14.3); White Blood Cell 4.7 10^3/uL (4.4-10.8)
[2019-04-03 06:19] LABS: Calcium 8.7 mg/dL (8.5-10.1); Potassium 4.1 mmol/L (3.5-5.1)
[2019-04-03 06:22] LABS: BUN/Creatinine Ratio 30.1
[2019-04-03] MEDS: BUDESONIDE (INHALATION) 0.5 MG/2 ML NEB NEB SCH ×2 (07:04→18:53)
[2019-04-03] MEDS: IPRATROPIUM BROM 0.5 MG/2.5ML INH SOL NEB SCH ×5 (07:04→22:21)
[2019-04-03] MEDS: ALBUTEROL SULF 2.5 MG/0.5ML(0.5%) NEB SOLN NEB SCH ×5 (07:04→22:21)
[2019-04-03] MEDS: Ensure Enlive Strawberry 8oz Bottle PO SCH ×2 (08:00→18:00)
[2019-04-03 09:00] VITALS: BP 132/72
[2019-04-03] MEDS: PANTOPRAZOLE 40 MG TAB PO SCH (11:28)
[2019-04-03] MEDS: predniSONE 20 MG TAB PO SCH (11:29)
[2019-04-03] MEDS: METHIMAZOLE 5 MG TAB PO SCH (11:29)
[2019-04-03] MEDS: MEGESTROL ACETATE 20 MG TAB PO SCH (11:29)
[2019-04-03] MEDS: ASPirin 81 mg TAB PO SCH (11:29)
[2019-04-03] MEDS: PANCREATIC ENZYMES 4200 UNIT CAP PO SCH ×3 (11:31→18:00)
[2019-04-03] MEDS: VORICONAZOLE 200 MG PO SCH ×2 (11:34→22:08)
[2019-04-03 13:00] VITALS: BP 120/67
[2019-04-03 17:00] VITALS: BP 123/73
[2019-04-03] MEDS: DOXYCYCLINE 100 MG TAB/CAP PO SCH (22:07)
[2019-04-04] MEDS: PIPERACILLIN-TAZOB 2.25GM 50 ML IV SCH (03:30)
[2019-04-04 05:34] VITALS: BP 134/75
[2019-04-04] MEDS: ALBUTEROL SULF 2.5 MG/0.5ML(0.5%) NEB SOLN NEB SCH ×5 (06:09→21:57)
[2019-04-04] MEDS: IPRATROPIUM BROM 0.5 MG/2.5ML INH SOL NEB SCH ×5 (06:09→21:57)
[2019-04-04 09:00] VITALS: BP 126/73
[2019-04-04] MEDS: DOXYCYCLINE 100 MG TAB/CAP PO SCH ×2 (09:17→21:53)
[2019-04-04] MEDS: PANCREATIC ENZYMES 4200 UNIT CAP PO SCH ×2 (09:17→13:21)
[2019-04-04] MEDS: VORICONAZOLE 200 MG PO SCH ×2 (09:17→21:53)
[2019-04-04] MEDS: MEGESTROL ACETATE 20 MG TAB PO SCH (09:18)
[2019-04-04] MEDS: PANTOPRAZOLE 40 MG TAB PO SCH (09:18)
[2019-04-04] MEDS: METHIMAZOLE 5 MG TAB PO SCH (09:18)
[2019-04-04] MEDS: ASPirin 81 mg TAB PO SCH (09:18)
[2019-04-04] MEDS: predniSONE 20 MG TAB PO SCH (09:18)
[2019-04-04] MEDS: BUDESONIDE (INHALATION) 0.5 MG/2 ML NEB NEB SCH ×2 (09:43→19:16)
[2019-04-04] MEDS ORDERED: LEVOFLOXACIN 250 MG TAB PO SCH (10:00)
[2019-04-04] MEDS: guaiFENesin 200 MG/10 ML UD PO PRN ×2 (10:50→21:53)
--- NOTE | 2019-04-04 12:38 | NUR ---
Pt is independent, will D/C patient from physical therapy Addendum: 04/04/19 at 1239 by Zaynab Godfrey PT Amended: Links added.
[2019-04-04 13:00] VITALS: BP 110/67
[2019-04-04 16:58] VITALS: BP 127/79
--- NOTE | 2019-04-04 19:35 | NUR ---
Opening Shift Note Assumed care of patient, awake and alert. Up in chair w/no S/S of distress/SOB or pain. Instructed on POC and to call for assist PRN, will continue to monitor for changes Q1hr and PRN.
[2019-04-04 19:54] VITALS: BP 127/79
[2019-04-04] MEDS: HYDROcodone-ACET 5/325MG TAB PO PRN (21:53)
[2019-04-04 22:00] VITALS: BP 122/62
[2019-04-05 05:00] VITALS: BP 152/99
[2019-04-05] MEDS: IPRATROPIUM BROM 0.5 MG/2.5ML INH SOL NEB SCH ×3 (06:37→13:53)
[2019-04-05] MEDS: ALBUTEROL SULF 2.5 MG/0.5ML(0.5%) NEB SOLN NEB SCH ×3 (06:37→13:53)
[2019-04-05 09:00] VITALS: BP 150/86
[2019-04-05] MEDS: BUDESONIDE (INHALATION) 0.5 MG/2 ML NEB NEB SCH (10:00)
[2019-04-05] MEDS: Ensure Enlive Strawberry 8oz Bottle PO SCH ×3 (10:27→10:46)
[2019-04-05] MEDS: MEGESTROL ACETATE 20 MG TAB PO SCH (10:32)
[2019-04-05] MEDS: METHIMAZOLE 5 MG TAB PO SCH (10:32)
[2019-04-05] MEDS: DOXYCYCLINE 100 MG TAB/CAP PO SCH (10:33)
[2019-04-05] MEDS: predniSONE 20 MG TAB PO SCH (10:33)
[2019-04-05] MEDS: ASPirin 81 mg TAB PO SCH (10:33)
[2019-04-05] MEDS: PANTOPRAZOLE 40 MG TAB PO SCH (10:34)
[2019-04-05] MEDS: HYDROcodone-ACET 5/325MG TAB PO PRN (10:41)
[2019-04-05] MEDS: PANCREATIC ENZYMES 4200 UNIT CAP PO SCH ×2 (10:41→10:45)
[2019-04-05] MEDS: VORICONAZOLE 200 MG PO SCH (10:42)
[2019-04-05] MEDS: guaiFENesin 200 MG/10 ML UD PO PRN (10:54)
--- NOTE | 2019-04-05 11:58 | NUR ---
Respiratory note: THERAPIST UNAVAILABLE FOR 1000 MED-NEB TX; TX NOT ADMINISTERED. WILL ASSESS PATIENT FOR ANY RESPIRATORY DISTRESS.
[2019-04-05 15:32] VITALS: BP 115/63
--- NOTE | 2019-04-05 18:36 | NUR ---
PATIENT WENT HOME FEELING GREAT VITAL SIGNS IN NORMAL LIMITS ALL DC INSTRUCTION INCLUDING APOINTMENT GAVE TO THE PATIENT //Ladonna MENDIOLA
== END 2019-04-05 17:30 | disposition home or self-care (01) | DRG 871 ==
LOC: EDBD 02:58 → ER 03:01 → TELE 10:02 → EDUNIT# 10:02 → TELE-CENTR 20:11 → CENTRAL 04-02 00:45
PROVIDERS: ADMIT Nurse Practitioner Acute Care; ATTEND Internal Medicine
DX: A41.9 Sepsis, unspecified organism (principal); J96.20 Acute and chronic respiratory failure, unspecified whether with hypoxia or hypercapnia; N17.0 Acute kidney failure with tubular necrosis; J44.1 Chronic obstructive pulmonary disease with (acute) exacerbation; E87.1 Hypo-osmolality and hyponatremia; K86.1 Other chronic pancreatitis; J44.0 Chronic obstructive pulmonary disease with (acute) lower respiratory infection; N18.4 Chronic kidney disease, stage 4 (severe); E44.0 Moderate protein-calorie malnutrition; Z68.1 Body mass index [BMI] 19.9 or less, adult; B44.1 Other pulmonary aspergillosis; I12.9 Hypertensive chronic kidney disease with stage 1 through stage 4 chronic kidney disease, or unspecified chronic kidney disease; J20.9 Acute bronchitis, unspecified; D63.8 Anemia in other chronic diseases classified elsewhere; E05.90 Thyrotoxicosis, unspecified without thyrotoxic crisis or storm; Z86.11 Personal history of tuberculosis
CPT/HCPCS: 36415; 71045; 80048; 80053; 80061; 81001; 83605; 84484; 85025; 85610; 85730; 87040; 87070; 87081; 87205; 93005; 94640; 96361; 96365; 96375; G0378; J2543; J3465; J3490; J7060

== ENCOUNTER 2019-08-25 13:56 | Inpatient (IN) | payer MEDICAID, MEDICARE ==
[~2019-08-25] VITALS: Ht 152.4 cm; Wt 40.9 kg
[~2019-08-25 13:56] MED LIST changes: +ASPI81CH43 PO; +CLOP75TA41 PO; +LEVO-28 PO; +LOSA-39 PO; -LUBI8CAP4 PO; -PROM1SYP4 PO; +SIMV-8 PO; +VORI200T3 PO; -VORI200T8 PO
[2019-08-25 14:48] LABS: Basophils # (auto) 0 uL; Basophils % (auto) 0.7 % (0.0-2.0); Eosinophils # (auto) 0.1 uL; Eosinophils % (auto) 1.2 % (0.0-7.0); Hemoglobin 11.5 g/dL (12.2-16.2); Lymphocytes # (auto) 1.2 uL; Mean Corpuscular Hemoglobin 32.6 pg (28.0-32.0); Mean Corpuscular Hgb Conc. 33.8 g/dL (32.0-36.0); Mean Corpuscular Volume 96.4 fL (80.0-100.0); Monocytes # (auto) 1.1 uL; Monocytes % (auto) 15.8 % (0.0-12.0); Neutrophils # (auto) 4.6 uL; Neutrophils % (auto) 65.3 % (37.0-80.0); Nucleated Red Blood Cells % 0.1 %; Platelet Count (auto) 374 10^3/uL (140-450); Red Blood Cells 3.53 10^6/uL (4.0-5.20); Red Cell Distribution Width 14.4 % (11.8-14.3)
[2019-08-25 15:02] LABS: Albumin 3.3 g/dL (3.4-5.0); Calcium 8.6 mg/dL (8.5-10.1); Potassium 3.6 mmol/L (3.5-5.1)
[2019-08-25 15:04] LABS: BUN/Creatinine Ratio 22.4; Bilirubin, Total 0.5 mg/dL (0.2-1.0); Total Protein 7.6 g/dL (6.4-8.2)
[2019-08-25] MEDS ORDERED: SODIUM CHLORIDE 0.9% 500 ML IV ONE (19:45)
[2019-08-25] MEDS ORDERED: SODIUM CHLORIDE 0.9% 1,000 ML IV ONE (19:57)
[2019-08-25] MEDS ORDERED: VANCOMYCIN PER PHARMACY 1,000 MG IV SCH (20:00)
[2019-08-25] MEDS ORDERED: ACETAMINOPHEN 650 MG RECT SUPP PR ONE (20:00)
[2019-08-25 21:00] LABS: Lactic Acid w/Reflex 2.1 mmol/L (0.4-2.0)
[2019-08-25] MEDS ORDERED: VANCOMYCIN 750mg/250ml 250 ML IV ONE (21:00)
[2019-08-25 21:20] LABS: INR 0.97 (0.9-1.15); Partial Thromboplastin Time 28.5 sec (23.64-32.05)
[2019-08-25] MEDS ORDERED: PIPERACILLIN-TAZOB 2.25GM 50 ML IV SCH (22:00)
[2019-08-25] MEDS ORDERED: PIPERACILLIN-TAZOB 2.25GM 50 ML IV ONE (22:30)
[2019-08-25] MEDS ORDERED: IOHEXOL 350 MG/ML 100ML IJ ONE (23:12)
[2019-08-26] VITALS (7 sets, daily range): BP systolic 113–145; BP diastolic 70–78
[2019-08-26] MEDS ORDERED: ACETAMINOPHEN 325 MG TAB PO PRN (01:30)
[2019-08-26] MEDS ORDERED: ONDANSETRON HCL 4 MG/2 ML VIAL IV PRN (01:30)
[2019-08-26] MEDS ORDERED: TEMAZEPAM 15 MG CAP PO PRN (01:30)
[2019-08-26 01:37] LABS: Urine Bacteria FEW /hpf (None Seen); Urine Blood Negative /uL (Negative); Urine Specific Gravity 1.013 (1.001-1.035); Urine WBC 23 /hpf (0 - 5)
[2019-08-26] MEDS: SODIUM CHLORIDE 0.9% 1,000 ML IV SCH ×2 (01:56→17:25)
--- NOTE | 2019-08-26 04:15 | NUR ---
MS admit from ER STEVE COCHRAN admitted to MS. Patient oriented to Juliana Capellan, primary RN, unit, room, bed, and unit policies regarding patient care and visiting hours. Patient weighed by bedscale and encouraged to call if they need something. All questions and concerns addressed, patient verbalized understanding.
[2019-08-26] MEDS ORDERED: LEVOFLOXACIN 500MG 100 ML IV ONE (06:00)
[2019-08-26] MEDS ORDERED: PIPERACILLIN-TAZOB 2.25GM 50 ML IV SCH (06:00)
[2019-08-26] MEDS: ALBUTEROL SULF 2.5 MG/0.5ML(0.5%) NEB SOLN NEB SCH ×3 (06:20→18:41)
--- NOTE | 2019-08-26 06:30 | NUR ---
Pharmacy called regarding medication verification for vancomycin IV. Hospitalist paged. Awaiting for call back. Care continued.
--- NOTE | 2019-08-26 07:00 | NUR ---
Call back received from Faisal Cary NP, Vancomycin IV verification received. Per Faisal cary NP, continue Vancomycin IV per pharmacy protocol. Called and talked to Cam, pharmacist, verification of medication order relayed. Pharmacist verbalized understanding. Report will be given to oncoming RN.
--- NOTE | 2019-08-26 07:30 | NUR ---
Opening Shift Note RECEIVED REPORT FROM NOC RN. Assumed care of patient, awake and alert. PATIENT ON OXYGEN AT 2 LPM VIA NASAL CANNULA WITH no S/S of distress/SOB or pain. BED IN LOWEST, LOCKED POSITION WITH SIDERAILS UP x2 WITH CALL LIGHT WITHIN REACH. Instructed on POC and to call for assist PRN, will continue to monitor for changes Q1hr and PRN.
[2019-08-26 09:18] LABS: Basophils # (auto) 0.1 uL; Basophils % (auto) 0.8 % (0.0-2.0); Eosinophils # (auto) 0.2 uL; Hematocrit 36.4 % (36.0-46.0); Hemoglobin 12.5 g/dL (12.2-16.2); Lymphocytes # (auto) 1.4 uL; Lymphocytes % (auto) 12.7 % (10.0-50.0); Mean Corpuscular Hgb Conc. 34.2 g/dL (32.0-36.0); Mean Corpuscular Volume 96.4 fL (80.0-100.0); Monocytes # (auto) 1.2 uL; Neutrophils % (auto) 73.5 % (37.0-80.0); Nucleated Red Blood Cells % 0.1 %; Platelet Count (auto) 436 10^3/uL (140-450); Red Blood Cells 3.77 10^6/uL (4.0-5.20); Red Cell Distribution Width 14.6 % (11.8-14.3); White Blood Cell 10.8 10^3/uL (4.4-10.8)
[2019-08-26 09:20] LABS: Albumin 3.3 g/dL (3.4-5.0); Calcium 8.4 mg/dL (8.5-10.1); Potassium 3.7 mmol/L (3.5-5.1)
[2019-08-26 09:23] LABS: BUN/Creatinine Ratio 10.1; Bilirubin, Total 0.7 mg/dL (0.2-1.0); Total Protein 7.6 g/dL (6.4-8.2)
--- NOTE | 2019-08-26 09:53 | NUR ---
Respiratory note: PAGED FOR MED NEB. INFORMED RN PT HAS NO PRN TX. NEXT SCHEDULED TX IS 1200. SHE IS GOING TO [facility] TO SEE IF PT CAN HAVE PRN ORDER.
[2019-08-26] MEDS: LOSARTAN POTASSIUM 25 MG TAB PO SCH (10:26)
[2019-08-26] MEDS: HCTZ 25 MG TAB PO SCH (10:27)
[2019-08-26] MEDS: FAMOTIDINE 20 MG TAB PO SCH (10:27)
[2019-08-26] MEDS: ENOXAPARIN SOD 40 MG/0.4 ML SYRINGE SC SCH (10:27)
[2019-08-26] MEDS ORDERED: traMADol HCL 50 MG TAB PO PRN (13:00)
[2019-08-26] MEDS ORDERED: CLOPIDOGREL BISULFATE 75 MG TAB PO ONE (13:15)
[2019-08-26] MEDS ORDERED: methIMAzole 5 MG TAB PO ONE (13:15)
[2019-08-26] MEDS ORDERED: MEGESTROL ACETATE 20 MG TAB PO ONE (13:15)
[2019-08-26] MEDS: IPRATROPIUM BROM 0.5 MG/2.5ML INH SOL NEB SCH ×2 (14:18→18:41)
[2019-08-26] MEDS ORDERED: SODIUM CHLORIDE 0.9 % NEB SOLN 3ML NEB ONE (14:26)
--- NOTE | 2019-08-26 16:30 | NUR ---
PATIENT IV FOUND DISLODGED, LAYING ON FLOOR.
--- NOTE | 2019-08-26 16:45 | NUR ---
IV insertion IV access obtained, via clean sterile technique by inserting 22 gauge catheter at RIGHT FOREARM after 1 attempt. IV secured properly. No trauma to site. Patient tolerated well.
--- NOTE | 2019-08-26 17:00 | NUR ---
PATIENT HAS BLISTERS AND SKIN LESIONS TO LEFT FOREARM, ABOVE PREVIOUS IV SITE. INFORMED DR. BLANTON OF PATIENT'S CONDITION. ORDERS RECEIVED TO HOLD LEVAQUIN.
[2019-08-26] MEDS: PANCREATIC ENZYMES 4200 UNIT CAP PO SCH (18:35)
[2019-08-26] MEDS: BUDESONIDE (INHALATION) 0.5 MG/2 ML NEB NEB SCH (18:41)
--- NOTE | 2019-08-26 19:35 | NUR ---
Opening Shift Note Assumed care of patient, awake and alert. No S/S of distress/SOB or pain. Instructed on POC and to call for assist PRN, will continue to monitor for changes Q1hr and PRN. Patient has periods of confusion, easily re-oriented. Bed alarm on at all times for patient safety.
[2019-08-26] MEDS ORDERED: VANCOMYCIN 500 MG in D5W 5% 100 ML IV SCH (21:30)
[2019-08-26] MEDS ORDERED: VANCOMYCIN 750mg/250ml 250 ML IV SCH (22:00)
[2019-08-26] MEDS: ATORVASTATIN 20 MG TAB PO SCH (22:00)
--- NOTE | 2019-08-27 00:19 | NUR ---
Respiratory note: PT REFUSED MED NEB TX AT THIS TIME. PT IN NO RESPIRATORY DISTRESS, WILL CONTINUE TO MONITOR.
[2019-08-27] MEDS: ALBUTEROL SULF 2.5 MG/0.5ML(0.5%) NEB SOLN NEB SCH ×5 (02:26→19:27)
[2019-08-27 04:00] VITALS: BP 119/71
[2019-08-27] MEDS: SODIUM CHLORIDE 0.9% 1,000 ML IV SCH ×2 (05:46→18:00)
[2019-08-27] MEDS ORDERED: LEVOFLOXACIN 250MG 50 ML IV SCH (06:00)
[2019-08-27] MEDS: IPRATROPIUM BROM 0.5 MG/2.5ML INH SOL NEB SCH ×3 (06:47→19:27)
[2019-08-27] MEDS: BUDESONIDE (INHALATION) 0.5 MG/2 ML NEB NEB SCH ×2 (06:50→19:27)
--- NOTE | 2019-08-27 07:30 | NUR ---
Opening Shift Note Assumed care of patient, sleeping and fatigued. No S/S of distress/SOB or pain. Instructed on POC and to call for assist PRN, will continue to monitor for changes Q1hr and PRN.
[2019-08-27 08:00] VITALS: BP 123/62
[2019-08-27] MEDS: PANCREATIC ENZYMES 4200 UNIT CAP PO SCH ×3 (08:05→18:54)
[2019-08-27 09:20] VITALS: BP 123/62
[2019-08-27] MEDS: LOSARTAN POTASSIUM 25 MG TAB PO SCH (11:02)
[2019-08-27] MEDS: CLOPIDOGREL BISULFATE 75 MG TAB PO SCH (11:03)
[2019-08-27] MEDS: MEGESTROL ACETATE 20 MG TAB PO SCH (11:03)
[2019-08-27] MEDS: FAMOTIDINE 20 MG TAB PO SCH (11:03)
[2019-08-27] MEDS: HCTZ 25 MG TAB PO SCH (11:03)
[2019-08-27] MEDS: ENOXAPARIN SOD 40 MG/0.4 ML SYRINGE SC SCH (11:04)
[2019-08-27] MEDS: methIMAzole 5 MG TAB PO SCH (11:04)
[2019-08-27 11:09] LABS: Basophils # (auto) 0.1 uL; Basophils % (auto) 0.8 % (0.0-2.0); Eosinophils # (auto) 0.1 uL; Hemoglobin 11.4 g/dL (12.2-16.2); Lymphocytes # (auto) 1.1 uL; Mean Corpuscular Hemoglobin 33.2 pg (28.0-32.0); White Blood Cell 6.7 10^3/uL (4.4-10.8)
[2019-08-27 11:11] LABS: Hematocrit 32.5 % (36.0-46.0); Mean Corpuscular Hgb Conc. 35.2 g/dL (32.0-36.0); Mean Corpuscular Volume 94.5 fL (80.0-100.0); Monocytes % (auto) 15.4 % (0.0-12.0); Neutrophils # (auto) 4.4 uL; Neutrophils % (auto) 65.8 % (37.0-80.0); Platelet Count (auto) 475 10^3/uL (140-450); Red Blood Cells 3.43 10^6/uL (4.0-5.20); Red Cell Distribution Width 14.6 % (11.8-14.3)
[2019-08-27 11:28] LABS: Albumin 3.1 g/dL (3.4-5.0); Calcium 8.4 mg/dL (8.5-10.1)
[2019-08-27 11:31] LABS: Bilirubin, Total 0.7 mg/dL (0.2-1.0); Total Protein 6.9 g/dL (6.4-8.2)
--- NOTE | 2019-08-27 11:50 | NUR ---
Respiratory note: RT AT BEDSIDE FOR POX CHECK ORDERED PER DR. BLANTON. PT SATTING 97% ON ROOM AIR. NOTIFIED MARLENA BRUNO. MEDNEB TX GIVEN, PT TOLERATED WELL. PT REMAINING ON ROOM AIR AFTER TREATMENT, TOLERATING WELL.
--- NOTE | 2019-08-27 12:35 | NUR ---
Nutrition consult/assessment Notes please see attached link for complete assessment Est. Needs IBW [id number] kcal (25-30 kcal/kgBW), 45-54 gms pro (1.0-1.2 gms/kgBW). Will continue to monitor pertinent labs and reassess nutrient need prn Addendum: 08/27/19 at [address] Amended: Links added.
[2019-08-27 13:00] VITALS: BP 108/59
--- NOTE | 2019-08-27 14:50 | NUR ---
PATIENT PULLED OUT IV. PATIENT IS CONFUSED AND ANXIOUS. SHE REPORTS THAT SHE PULLED OUT HER IV BECAUSE SHE IS GOING HOME TODAY. PATIENT REORIENTED AND DRESSING APPLIED TO IV SITE. IV CATHETER INTACT. WILL CONTINUE TO RE-ORIENT AND PLACE A NEW IV.
[2019-08-27] MEDS ORDERED: POTASSIUM CHL 20 Meq TABLET PO ONE (15:45)
--- NOTE | 2019-08-27 18:15 | NUR ---
PATIENT FELL. PATIENT DISCOVERED ON THE FLOOR BY THE NURSE AIDS. I WAS INFORMED AND WENT TO THE ROOM TO ASSESS THE SITUATION. I ASSISTED THE PATIENT BACK TO BED. THE PATIENT REPORTS THAT SHE HIT HER HEAD ON THE FOOT OF THE BED. UPON ASSESSMENT THERE DOES NOT APPEAR TO BE ANY BREAKS IN THE SKIN OR BRUISING. WILL INFORM DOCTOR, TO OBTAIN A SCAN OF THE AFFECTED AREA. CHARGE NURSE NOTIFIED AND RED SOCKS APPLIED TO THE PATIENT. MESSAGE LEFT WITH FAMILY MEMBER TO NOTIFY THEM OF THE FALL. WILL CONTINUE TO MONITOR PATIENT AND MAKE SURE THE BED ALARM IS ON AND FUNCTIONAL AT ALL TIMES.
[2019-08-27] MEDS: HYDROcodone-ACET 5/325MG TAB PO PRN (18:49)
--- NOTE | 2019-08-27 19:50 | NUR ---
Opening Shift Note Assumed care of patient, awake and alert. Patient wearing non-skid socks and bed alarm on at all times for patient safety. No S/S of distress/SOB or pain. Instructed on POC and to call for assist PRN, will continue to monitor for changes Q1hr and PRN.
[2019-08-27 22:00] VITALS: BP 115/58
[2019-08-27] MEDS: ATORVASTATIN 20 MG TAB PO SCH (22:09)
[2019-08-28] MEDS: ALBUTEROL SULF 2.5 MG/0.5ML(0.5%) NEB SOLN NEB SCH ×3 (00:39→12:52)
[2019-08-28] MEDS: IPRATROPIUM BROM 0.5 MG/2.5ML INH SOL NEB SCH ×4 (00:39→12:52)
[2019-08-28 04:00] VITALS: BP 116/64
[2019-08-28 05:51] LABS: Calcium 8.5 mg/dL (8.5-10.1); Potassium 3.5 mmol/L (3.5-5.1)
[2019-08-28 05:55] LABS: BUN/Creatinine Ratio 9.5; Bilirubin, Total 0.5 mg/dL (0.2-1.0); Total Protein 6.6 g/dL (6.4-8.2)
--- NOTE | 2019-08-28 07:13 | NUR ---
Patient assisted to the bedside commode for a bowel movement. Patient cleaned and assisted back to bed with no untoward incident. No complains at this time, verbalizing she is feeling better today. All needs attended to. Will give report to oncoming RN.
[2019-08-28] MEDS: SODIUM CHLORIDE 0.9% 1,000 ML IV SCH (07:20)
--- NOTE | 2019-08-28 07:30 | NUR ---
Opening Shift Note Assumed care of patient, awake and alert. No S/S of distress/SOB or pain. Instructed on POC and to call for assist PRN, will continue to monitor for changes Q1hr and PRN.
[2019-08-28 08:00] VITALS: BP 97/66
[2019-08-28] MEDS: PANCREATIC ENZYMES 4200 UNIT CAP PO SCH ×3 (08:12→18:12)
[2019-08-28 08:30] VITALS: BP 97/66
[2019-08-28] MEDS: LOSARTAN POTASSIUM 25 MG TAB PO SCH (09:40)
[2019-08-28] MEDS: HCTZ 25 MG TAB PO SCH (09:40)
[2019-08-28] MEDS: ENOXAPARIN SOD 40 MG/0.4 ML SYRINGE SC SCH (09:41)
[2019-08-28] MEDS: FAMOTIDINE 20 MG TAB PO SCH (09:41)
[2019-08-28] MEDS: CLOPIDOGREL BISULFATE 75 MG TAB PO SCH (09:41)
[2019-08-28] MEDS: MEGESTROL ACETATE 20 MG TAB PO SCH (09:41)
[2019-08-28] MEDS: methIMAzole 5 MG TAB PO SCH (09:41)
[2019-08-28] MEDS ORDERED: MORP20SO17 PO (10:30)
[2019-08-28] MEDS ORDERED: MORP1SOL7 PO (10:30)
--- NOTE | 2019-08-28 10:58 | NUR ---
per Dr. Parish. the patient is not a TB risk and the isolation can be discontinued.
[2019-08-28] MEDS: HYDROcodone-ACET 5/325MG TAB PO PRN (11:03)
[2019-08-28 12:30] VITALS: BP 98/62
[2019-08-28] MEDS: BUDESONIDE (INHALATION) 0.5 MG/2 ML NEB NEB SCH (12:52)
[2019-08-28 16:47] VITALS: BP 95/50
--- NOTE | 2019-08-28 16:53 | NUR ---
FOLLOWED UP WITH THE SON CONCERNING THE PATIENT'S TRANSPORTATION HOME. THE SON INFORMED ME THAT HE WOULD BE HERE TO PICK HER UP IN ABOUT 45 MINUTES TO AN HOUR. WILL HAVE THE PATIENT'S PAPERWORK DONE AND READY TO GO.
[2019-08-28] MEDS ORDERED: Ensure Enlive Strawberry 8oz Bottle PO SCH (18:00)
--- NOTE | 2019-08-28 19:00 | NUR ---
Discharge instructions given as ordered. Encourage to follow up with PMD as instructed. All questions and concerns addressed. Patient verbalized understanding. No IV present because patient removed it yesterday. Patient taken to vehicle via wheelchair with all personal belongings, accompanied by staff and family member. No distress noted at time of departure.
== END 2019-08-28 19:00 | disposition home or self-care (01) | DRG 871 ==
LOC: EDBD 13:56 → ER 14:16 → OVERFLOW 14:17 → MERGE 14:17 → WEST WING 08-26 04:15
PROVIDERS: ADMIT Nurse Practitioner; ATTEND Internal Medicine Pulmonary Disease
DX: A41.9 Sepsis, unspecified organism (principal); G93.41 Metabolic encephalopathy; N39.0 Urinary tract infection, site not specified; R06.03 Acute respiratory distress; E78.5 Hyperlipidemia, unspecified; I10 Essential (primary) hypertension; Z98.82 Breast implant status; Z82.49 Family history of ischemic heart disease and other diseases of the circulatory system; Z86.11 Personal history of tuberculosis; J43.9 Emphysema, unspecified
CPT/HCPCS: 36415; 36600; 70450; 70486; 71045; 71275; 74176; 80053; 81001; 82553; 82805; 83605; 83690; 83880; 84484; 85025; 85379; 85384; 85610; 85730; 86850; 86900; 86901; 87040; 87086; 87088; 87186; 93005; 93970; 94640; 94761; 96361; 96365; 96367; G0378; J1956; J2543